=== PATIENT | female | born 1970 | race Caucasian/White ===

== ENCOUNTER 2017-06-11 16:15 | Emergency (ER) | payer OTHER ==
[2017-06-11] MEDS: KETOROLAC 60 MG INJ IM (18:24)
== END 2017-06-11 21:00 | disposition home or self-care (01) ==
LOC: FTE 16:15
DX: M17.9 Osteoarthritis of knee, unspecified (principal)
CPT/HCPCS: 73562; 96372; 99284-25

== ENCOUNTER 2018-01-08 18:02 | Emergency (ER) | payer OTHER ==
[2018-01-08] MEDS: predniSONE 20 MG TAB PO (19:22)
[2018-01-08] MEDS: KETOROLAC 30 MG INJ IM (19:22)
== END 2018-01-08 20:40 | disposition home or self-care (01) ==
LOC: FTE 18:02
DX: M75.02 Adhesive capsulitis of left shoulder (principal); J06.9 Acute upper respiratory infection, unspecified
CPT/HCPCS: 73030; 81025; 93005; 96372; 99284-25